=== PATIENT | female | born 1995 | race Two or more races ===

== ENCOUNTER 2017-11-19 00:11 | Emergency (ER) | payer BC, OTHER ==
[~2017-11-19] VITALS: Ht 160 cm; Wt 77.1 kg
[2017-11-19 00:28] VITALS: BP 128/78
[2017-11-19] MEDS ORDERED: ONDANSETRON 4 MG TAB.RAPDIS ONE (01:15)
[2017-11-19] MEDS ORDERED: ACETAMINOPHEN ES 500 MG TABLET ONE (01:15)
[2017-11-19] MEDS ORDERED: AMOX/CLAVULANATE 875 MG TABLET ONE (01:16)
[2017-11-19] MEDS ORDERED: TDAP [DIPH/PERTUSSIS/TET] 0.5 ML VIAL IM ONE ×2 (01:16→01:30)
[2017-11-19] MEDS ORDERED: ONDANSETRON 4 MG TAB.RAPDIS SL ONE (01:30)
[2017-11-19] MEDS ORDERED: AMOX/CLAVULANATE 875 MG TABLET PO ONE (01:30)
[2017-11-19] MEDS ORDERED: ACETAMINOPHEN ES 500 MG TABLET PO ONE (01:30)
== END 2017-11-19 01:46 | disposition home or self-care (01) ==
LOC: ER 00:11
DX: S91.352A Open bite, left foot, initial encounter (principal); J45.909 Unspecified asthma, uncomplicated; W54.0XXA Bitten by dog, initial encounter; Y93.89 Activity, other specified; Y92.89 Other specified places as the place of occurrence of the external cause; Y99.8 Other external cause status
CPT/HCPCS: 90715; A4606; Q0162; Z7610